=== PATIENT | male | born 1995 | race Caucasian/White ===

== ENCOUNTER 2019-06-24 10:49 | Emergency (ER) | payer SELFPAY ==
--- NOTE | 2019-06-24 11:08 | EDM.PDOC ---
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 The patient was flushed on the site and came to the emergency room for evaluation at time of evaluation patient is asymptomatic but does have residue in his eyelid lids. 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 [No Known Home Meds] 09/16/17 [History] Past Medical History - Infectious Disease History Infectious Disease History: Reports: None - Past Surgical History Musculoskeletal Surgical History: Reports: Other (See Below) Other Musculoskeletal Surgeries/Procedures:: Right hand surgery Social & Family History - Family History Family Medical History: Noncontributory ED ROS GENERAL - Review of Systems Review Of Systems: See Below Constitutional: Reports: No Symptoms HEENT: Reports: No Symptoms, Eye Pain Respiratory: Reports: No Symptoms Cardiovascular: Reports: No Symptoms Endocrine: Reports: No Symptoms GI/Abdominal: Reports: No Symptoms : Reports: No Symptoms Musculoskeletal: Reports: No Symptoms Skin: Reports: No Symptoms Neurological: Reports: No Symptoms Psychiatric: Reports: No Symptoms Hematologic/Lymphatic: Reports: No Symptoms Immunologic: Reports: No Symptoms ED EXAM GENERAL W FULL EYE - Physical Exam Exam: See Below Exam Limited By: No Limitations General Appearance: Alert, WD/WN, No Apparent Distress Eye Exam: Bilateral Eye: Normal Fundi, Normal Inspection, PERRL Eyelids: Bilateral: Normal Appearance (The patient has some type of pain 2 or residue on his eyelids) Cornea Exam: Bilateral: Normal Appearance Extraocular Movements: Bilateral: Intact Pupils: Normal Accommodation Pupillary Size: Bilateral: 4 mm Pupillary Reaction: Bilateral: Brisk Posterior Chamber: Bilateral: Normal Funduscopic Ears: Normal External Exam Nose: Normal Inspection Throat/Mouth: Normal Inspection Head: Atraumatic, Normocephalic Neck: Normal Inspection Respiratory/Chest: No Respiratory Distress, Lungs Clear Rectal (Males) Exam: Deferred Rectal (Female) Exam: Deferred Neurological: Alert, Oriented, CN II-XII Intact Psychiatric: Normal Affect, Normal Mood Course - Vital Signs Text/Narrative:: This 23-year-old male presents the emergency room chief complaint of being exposed to some hazardous chemical. Patient was irrigated both eyes while at work and he was here for recheck of his eyes. Patient has no evidence of any foreign body in his eyes however he does have residual foreign body on his eyelid lashes. Patient is having no symptoms at all with normal visual acuity 20/13 and 20/15 Last Recorded V/S: Last Vital Signs Temp 96.7 F L 06/24/19 11:03 Pulse 51 L 06/24/19 11:03 Resp 18 06/24/19 11:03 BP 118/61 06/24/19 11:03 Pulse Ox 98 06/24/19 11:03 - Orders/Labs/Meds Orders: Active Orders 24 hr Category Date Time Status Visual Acuity [Vision Test] [RC] ASDIRECTED Care 06/24/19 11:12 Active Departure - Departure Time of Disposition: 11:39 Disposition: Home, Self-Care 01 Condition: Good Clinical Impression: Chemical exposure of eye - Discharge Information Instructions: Eye Foreign Body, [id number] Referrals: PCP,None [Primary Care Provider] - Forms: ED Department Discharge, ED Summary Discharge Additional Instructions: Patient should wear goggles while using any aerosolized compound Should also wear a mask Sepsis Event Note - Focused Exam Vital Signs: Vital Signs Temp Pulse Resp BP Pulse Ox 06/24/19 11:03 96.7 F L 51 L 18 118/61 98 Date Exam was Performed: 06/24/19 Time Exam was Performed: 11:34 - My Orders Last 24 Hours: My Active Orders 06/24/19 11:12 Visual Acuity [Vision Test] [RC] ASDIRECTED - Assessment/Plan Last 24 Hours: My Active Orders 06/24/19 11:12 Visual Acuity [Vision Test] [RC] ASDIRECTED
== END 2019-06-24 12:05 | disposition home or self-care (01) ==
LOC: MW.ED 10:49
DX: Z77.098 Contact with and (suspected) exposure to other hazardous, chiefly nonmedicinal, chemicals (principal)
CPT/HCPCS: 99282; 99283

== ENCOUNTER 2024-05-10 11:46 | Emergency (ER) | payer SELFPAY ==
[2024-05-10 12:26] LABS: BASOPHILS ABSOLUTE AUTO 0.01 K/uL (0.00-0.20); BASOPHILS PERCENT AUTO 0.2 % (0.0-1.0); EOSINOPHILS ABSOLUTE AUTO 0.02 K/uL (0.00-0.45); EOSINOPHILS PERCENT AUTO 0.3 % (0.0-6.0); HEMOGLOBIN 14.3 g/dL (14.0-18.0); IMMATURE GRAN ABSOLUTE AUTO 0.01 K/uL (0.00-0.05); IMMATURE GRAN PERCENT AUTO 0.2 % (0.0-0.4); LYMPHOCYTES ABSOLUTE AUTO 1.07 K/uL (1.00-4.80); LYMPHOCYTES PERCENT AUTO 18.5 % (24.0-44.0); MEAN CORPUSCULAR HEMOGLOBIN 28.3 pg (28.0-32.0); MEAN CORPUSCULAR HGB CONC 34.9 g/dL (32.0-36.0); MEAN PLATELET VOLUME 9.4 fL (9.4-12.4); MONOCYTES ABSOLUTE AUTO 0.63 K/uL (0.00-0.80); MONOCYTES PERCENT AUTO 10.9 % (0.0-8.0); NEUTROPHILS ABSOLUTE AUTO 4.03 K/uL (1.80-7.70); NEUTROPHILS PERCENT AUTO 69.9 % (41.0-71.0); PLATELET COUNT,PLT 204 K/uL (150-400); RED BLOOD CELL COUNT 5.06 M/uL (4.52-5.90); WHITE BLOOD CELL COUNT,WBC 5.77 K/uL (3.9-11.3)
[2024-05-10] MEDS: Sodium Chloride 0.9% 1,000 ML IV ONE (12:30)
[2024-05-10] MEDS: Ondansetron 4 MG/2 ML SDV IVPUSH ONE (12:30)
[2024-05-10] MEDS: Ketorolac 30 MG/ML SDV IVPUSH ONE (12:30)
[2024-05-10 12:56] LABS: A/G RATIO 1.1 (0.9-1.6); ALBUMIN 3.6 g/dL (3.4-5.0); BILIRUBIN TOTAL 0.4 mg/dL (0.2-1.0); CALCIUM 8.3 mg/dL (8.5-10.1); CARBON DIOXIDE,CO2 25.6 mmol/L (21.0-32.0); EST CRCL DRUG DOSING (CG) 106.4 mL/min; POTASSIUM,K 3.1 mmol/L (3.5-5.1); PROTEIN TOTAL,TP 6.9 g/dL (6.4-8.2)
[2024-05-10] MEDS: Potassium Chloride 20 MEQ Tab.ER PO ONE (13:00)
== END 2024-05-10 13:45 | disposition home or self-care (01) ==
LOC: MW.ED 11:46
DX: R07.2 Precordial pain (principal); E87.6 Hypokalemia; Z87.891 Personal history of nicotine dependence; Z75.8 Other problems related to medical facilities and other health care
CPT/HCPCS: 36415; 71045; 80053; 84484; 85025; 87428; 93005; 96361; 96374; 96375; 99285; A9270; J1885; J2405; J7030; 93010; 99283